=== PATIENT | male | born 1960 | race Caucasian/White ===

== ENCOUNTER 2024-05-20 10:51 | Emergency (ER) | payer MEDICARE, SELFPAY ==
[2024-05-20 11:22] VITALS: BP 108/67; PULSE 60; TEMP 36.7; O2SAT 97; BMI 28.7
--- NOTE | 2024-05-20 11:35 | XR_ITS ---
WS: [id number] XR lumbar spine 2-3V* [id number] REASON FOR EXAM: back pain FINDINGS: Relatively normal lumbar spine curvatures. No focal vertebral body lesion or compression deformity. Intervertebral disc spaces are intact with mild narrowing of the L4-L5 and L5-S1 disc space. Mild osteophytosis L1-L5. XR/XR lumbar spine 2-3V* [id number] IMPRESSION: Mild degenerative spondylosis. No acute abnormality.
--- NOTE | 2024-05-20 11:39 | ED_ITS ---
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 States pain is much worse with movement improved with rest denies any bowel or bladder incontinence rates pain 8 out of 10 currently. Associated symptoms: Deny abdominal pain, chills, fever(s), nausea or vomiting Review of Systems Const: Denies: fever(s), chills, body aches or change in appetite ENMT: Denies: throat pain or dental pain Card: Denies: chest pain Resp: Denies: dyspnea GI: Denies: abdominal pain, nausea, vomiting or diarrhea Musc: Reports: back pain; Denies: neck pain Skin/Breast: Denies: rash Neuro: Denies: headache(s) Physical Exam Const: COMMON NORMALS: no acute distress, patient oriented x3 and healthy appearing HENMT: COMMON NORMALS: normocephalic and atraumatic HEAD & SCALP: normocephalic and atraumatic Eye: COMMON NORMALS: conjunctivae normal CONJUNCTIVA: Yes conjunctivae normal Neck/C-Spine: COMMON NORMALS: full ROM and supple Chest: COMMONS NORMALS: normal inspection of the chest Resp: COMMON NORMALS: normal respiratory effort Cardio: COMMON NORMALS: regular rate, regular rhythm and No murmurs present (Cardio) RATE: regular rate RHYTHM: regular rhythm Back/Pelvis: OTHER: Paraspinal tenderness to lumbar spine no saddle anesthesia Extremity: COMMON NORMALS: normal to inspection and full ROM Neuro: COMMON NORMALS: patient oriented x3, moves all extremities and no focal motor deficits Psych: COMMON NORMALS: mental status grossly normal, Normal thought process present and cooperative THOUGHT PROCESS: Normal thought process present Skin: COMMON NORMALS: no rashes or lesions noted and no wounds GENERAL SKIN EXAM: no rashes or lesions noted Course Vital Signs: Vital signs: Vital Signs Temperature 98.0 F 05/20/24 11:22 Pulse Rate 60 05/20/24 11:22 Blood Pressure 108/67 05/20/24 11:22 Pulse Oximetry 97 05/20/24 11:22 Oxygen Delivery Me thod Room Air 05/20/24 11:22 MDM - Back Pain/Injury Medical Decision Making Patient presents here with low back pain is chronic in nature he is well- appearing here we will place him on Naprosyn Robaxin return if worsening. Medical Records I reviewed the patient's medical records. XR interpretation done by ED provider, pending radiology final review ED provider radiology interpretation(s): xr lumba: no acute abnormality Discharge Plan Discharge Patient Disposition: Home Clinical Impression: Chronic back pain Condition: Stable Prescriptions: New methocarbamol 750 mg tablet 750 mg PO Q6H PRN (Reason: spasms) Qty: 20 0RF Naprosyn 500 mg tablet 500 mg PO BID PRN (Reason: pain) Qty: 20 0RF Discharge Orders: Discharge ED (Routine); Ordered 05/20/24 Ordered By: Maritza Collins Discharge Diet: Advance as tolerated Discharge Activity: Resume usual activity Patient Instructions: Back Pain (ED) Coding Level of Care Code ED Oversize Load Pilot Escort for Jayla Ortiz
[2024-05-20] MEDS: methocarbamol 750 mg Tablet 1500 MG PO (11:41)
[2024-05-20] MEDS: dexamethasone 10 mg/mL INJ IM (11:42)
[2024-05-20] MEDS: ketorolac 30 mg/mL INJ IM (11:44)
--- NOTE | 2024-05-22 08:31 | DCPLANNER ---
Message sent to [facility] for PCP request.
== END 2024-05-20 12:51 | disposition home or self-care (01) ==
PROVIDERS: Emergency Provider Emergency Medicine
DX: M54.50 Low back pain, unspecified (principal); G89.29 Other chronic pain
CPT/HCPCS: 72100; 96372; 99284; J1100; J1885

== ENCOUNTER → 2025-01-13 13:34 | Outpatient (BNVA) | payer MEDICARE, SELFPAY | PROVIDERS: PCP Family Medicine; Visit Provider Family Medicine | DX: M10.9 Gout, unspecified (principal); M19.90 Unspecified osteoarthritis, unspecified site; M62.838 Other muscle spasm; G89.29 Other chronic pain; E03.9 Hypothyroidism, unspecified | CPT/HCPCS: 80053; 80061; 82306; 82607; 84443; 84550; 85025 ==

== ENCOUNTER → 2025-03-24 12:31 | Outpatient (BNVA) | payer MEDICARE, SELFPAY | PROVIDERS: PCP Family Medicine; Visit Provider Family Medicine | DX: R79.89 Other specified abnormal findings of blood chemistry (principal) | CPT/HCPCS: 82040; 84270; 84403 ==

== ENCOUNTER 2025-07-16 09:24 | Emergency (ER) | payer MEDICARE, SELFPAY ==
[2025-07-16 09:34] VITALS: BP 164/88; PULSE 57; TEMP 36.6; O2SAT 100
--- OUTSIDE RECORDS SUMMARY | 2025-07-16 09:37 | XMS_ITS | Patient Health Record ---
Author Organization [facility] Address [address] [place] [address] Care Team Providers Care Window Caser Name Role Phone Darin Dey MD Primary Care Provider Unav DR. Valerio Gill Unavailable [phone] Reason For Referral No Information Plan Of Treatment No Information Insurance Providers Payer Name Payer Address Payer Phone Subscriber Number Group Number Insured Name Patient Relationship to Insured Coverage Start Date Coverage End Date [facility] [address] [address] [place] [address] [id number] Brenton Lind Self - patient is the insured
--- OUTSIDE RECORDS SUMMARY | 2025-07-16 09:37 | XMS_ITS | Patient Health Record ---
Author Organization [facility] Address [address] [place] [address] Care Team Providers Care Foundation Assistant Name Role Phone Riley Gasca Unavailable [phone] Triny Aragon, Jaxon Unavailable Fcoi lable Allergies Allergen (clinical drug ingredient) Drug/Non Drug Allergy documented on EMR Reaction Allergy Type Onset Date Status NKDA Unknown Drug Allergy Active Reason For Referral No Information Medications Medication SIG (Take, Route, Fr equency, Duration) Notes Start Date End Date Status Vicodin 300 mg-5 mg 1 tab(s) orally every 6 hours Active Problems Problem Type SNOMED Code ICD Code Onset Dates Problem Status W/U Status Risk Notes Problem Shoulder joint pain (542414428) Pain in left shoulder (M25.512) Active confirmed Problem Arthralgia of the upper arm (054210269) Pain in left elbow (M25.522) Active confirmed Problem Paresthesia (finding) (13602276) Paresthesia of skin (R20.2) Active confirmed Plan Of Treatment No Information Insurance Providers Payer Name Payer Address Payer Phone Subscriber Number Group Number Insured Name Patient Relationship to Insured Coverage Start Date Coverage End Date [employer] [address] [place] [address] [id number] Brenton Lind Self - patient is the insured Medical (General) History Medical History History ICD Code Otherwise unremarkable Surgical History Surgery Date(Month/Year) 31 surgeries arm - left 3x 09/29
--- NOTE | 2025-07-16 09:38 | CT_ITS ---
WS: [id number] CT HEAD NONCONTRAST HISTORY: Symptoms of acute stroke TECHNIQUE: Contiguous axial imaging performed through the brain. Bone and soft tissue windows. Sagittal and coronal reformats reviewed. All CT scans at [facility] use at least one of these dose optimization techniques: automated exposure control; mA and/or kV adjustment per patient size (includes targeted exams where dose is matched to clinical indication); or iterative reconstruction. DLP: 1019.49 mGy COMPARISON: None available. No acute intracranial hemorrhage, midline shift or mass effect. No atrophy or prior infarcts or herniation. Ventricles: Normal size with no hydrocephalus. Paranasal sinuses: As visualized are clear. Mastoid air cells: Well pneumatized. Calvarium and scalp: Skull is intact with no soft tissue edema or swelling. CT/CT head thrombolytic [id number] IMPRESSION: Negative head CT. Notified Maritza Collins MD at 07/16/2025 9:49 AM.
--- NOTE | 2025-07-16 09:38 | ECG_ITS ---
[facility] Pat Name: Brenton Lind Department: Room: Gender: Male Critical Care Specialist: : 1960 Requested By: Maritza Collins Order Number: [id number] Gustavo MD: Shar Martin M.D. Measurements Intervals [place] Rate: 47 P: 49 [place]: 202 QRS: 3 QRSD: 94 T: 21 QT: 419 QTc: 373 Interpretive Statements SINUS BRADYCARDIA WITH SINUS ARRHYTHMIA No previous ECG available for comparison Electronically Signed On 07-17-2025 08:37:08 CDT by Shar Martin M.D. [email or web address]
--- NOTE | 2025-07-16 09:40 | W.ED.DIZZY ---
HPI - Dizziness General: Chief Complaint: Dizziness Stated Complaint: Dizzy light headed N pressure behind L eye Time Seen by Provider: 07/16/25 09:35 Source: patient Mode of arrival: ambulatory Limitations: no limitations History of Present Illness: HPI Narrative: 64-year-old male states has been having some lightheadedness along with vertigo since 12:30 AM. He states that again when he woke up he still had the vertigo that had overnight. States it is much worse with movement and states he feels better with rest he states that he is been able to walk fine has had some slight nausea he has a mild headache denies any history of stroke denies any slurred speech or focal weaknesses Related Data Home Medications ?Medication ?Instructions ?Recorded ?Confirmed baclofen 5 mg tablet 5 mg PO TID PRN Spasms 07/16/25 07/16/25 bupropion HCl 150 mg 24 hr tablet, 150 mg PO QAM 07/16/25 07/16/25 extended release prednisone 20 mg tablet 20 mg PO BID PRN gout inflammation 07/16/25 07/16/25 Previous Rx's ?Medication ?Instructions ?Recorded oxycodone-acetaminophen 5 mg-325 1 tab PO Q8H PRN chronic pain DJD 06/26/25 mg tablet 30 days #90 tabs rosuvastatin 20 mg tablet (Crestor) 20 mg PO DAILY lipids #90 tabs 07/01/25 allopurinol 100 mg tablet 100 mg PO DAILY #90 tabs 07/11/25 meclizine 50 mg tablet 50 mg PO BID PRN dizziness #14 tabs 07/16/25 Allergies Allergy/AdvReac Type Severity Reaction Status Date / Time No Known Allergies Allergy Verified 07/04/25 11:21 Review of Systems Neuro: Reports: dizziness [facility] ED PFSH: Social History Smoking and tobacco/nicotine status: never used tobacco/nicotine Physical Exam Const: COMMON NORMALS: no acute distress, patient oriented x3 and healthy appearing HENMT: COMMON NORMALS: normocephalic and atraumatic HEAD & SCALP: normocephalic and atraumatic Eye: COMMON NORMALS: Equal, round and reactive pupils present and EOMs intact bilaterally PUPIL: Yes Equal, round and reactive pupils present OTHER: Beating nystagmus when looking to the right Neck/C-Spine: COMMON NORMALS: full ROM and supple Chest: COMMONS NORMALS: normal inspection of the chest Resp: COMMON NORMALS: normal respiratory effort Cardio: COMMON NORMALS: regular rate, regular rhythm and No murmurs present (Cardio) RATE: regular rate RHYTHM: regular rhythm Extremity: COMMON NORMALS: normal to inspection and full ROM Neuro: COMMON NORMALS: patient oriented x3, moves all extremities and no focal motor deficits Psych: COMMON NORMALS: mental status grossly normal, Normal thought process present and cooperative THOUGHT PROCESS: Normal thought process present Skin: COMMON NORMALS: no rashes or lesions noted and no wounds GENERAL SKIN EXAM: no rashes or lesions noted Course Vital Signs: Vital signs: Vital Signs Temperature 97.8 F 07/16/25 09:34 Pulse Rate 55 L 07/16/25 11:16 Blood Pressure 146/93 07/16/25 11:16 Pulse Oximetry 98 07/16/25 11:16 Oxygen Delivery Me thod Room Air 07/16/25 10:30 MDM - Dizziness Medical Decision Making 64-year-old male presented here with vertigo that started at 12:30 AM. Differential included BPPV CVA TIA. CVA was considered felt is less likely based on his history and exam of his vertigo being much worse with movement and improved with rest he also had resolution of his symptoms after meclizine. Labs were reviewed with no acute abnormalities noted or no critical labs. CT head showed no signs of stroke. EKG here showed a sinus bradycardia heart rate [address] elevation QRS was 94 QTc is 383. Patient's symptoms are likely peripheral vertigo likely BPPV. Did give him discharge instructions on BPPV and informed her on exercises to perform at home will prescribe meclizine for home to take as needed for dizziness his NIH here was 0 he is to follow-up with his PCP and return if worsening symptoms he understands agrees to plan. Medical Records I reviewed the patient's medical records. Lab Data I reviewed the patient's lab results. 07/16/25 09:52 07/16/25 09:[address] 07/16/25 09:38 IMPRESSION: Negative head CT. Notified Maritza Collins MD at 07/16/2025 9:49 AM. Laboratory Results WBC 6.38 10^3/uL (3.29-11.43) 07/16/25 09:52 RBC 5.28 10^6/uL (3.85-5.65) 07/16/25 09:52 Hgb 15.30 g/dL (11.27-16.99) 07/16/25 09:52 Hct 44.7 % (37-53) 07/16/25 09:52 MCV 84.7 fl (82-101) 07/16/25 09:52 MCH 29.0 pg (27-33) 07/16/25 09:52 MCHC 34.2 g/dL (30-55) 07/16/25 09:52 RDW 12.1 % (12.1-15.1) 07/16/25 09:52 Plt Count 195 10^3/cmm (157-399) 07/16/25 09:52 MPV 8.4 fL (7.4-10.4) 07/16/25 09:52 Neut % (Auto) 69.8 % 07/16/25 09:52 Lymph % (Auto) 16.5 % 07/16/25 09:52 Victoria % (Auto) 9.2 % 07/16/25 09:52 Eos % (Auto) 3.3 % 07/16/25 09:52 Baso % (Auto) 0.9 % 07/16/25 09:52 Neut # (Auto) 4.45 10^3/uL (1.8-7.7) 07/16/25 09:52 Lymph # (Auto) 1.1 10^3/uL (0.8-4.8) 07/16/25 09:52 Victoria # (Auto) 0.6 10^3/uL (0.2-0.9) 07/16/25 09:52 Eos # (Auto) 0.2 10^3/uL (0.0-0.8) 07/16/25 09:52 Baso # (Auto) 0.1 10^3/uL (0.0-0.1) 07/16/25 09:52 Nucleated RBC % (auto) 0 % 07/16/25 09:52 Nucleated RBCs # 0.0 /100WBC 07/16/25 09:52 PT 12.40 SECONDS (12.1-14.9) 07/16/25 09:52 INR 0.87 (0.8-1.2) 07/16/25 09:52 APTT 26.8 SECONDS (23.9-36.7) 07/16/25 09:52 Sodium 139 mmol/L (136-145) 07/16/25 09:52 Potassium 4.2 mmol/L (3.5-5.1) 07/16/25 09:52 Chloride 102 mmol/L (98-107) 07/16/25 09:52 Carbon Dioxide 26 mmol/L (22-29) 07/16/25 09:52 Anion Gap 15.2 (5-19) 07/16/25 09:52 BUN 13 mg/dL (8-23) 07/16/25 09:52 Creatinine 0.8 mg/dL (0.7-1.2) 07/16/25 09:52 GFR Calculation 97.0 mL/min (90-130) 07/16/25 09:52 Glucose 95 mg/dL (65-115) 07/16/25 09:52 Calculated Osmolality 288 mOsm/kg (285-295) 07/16/25 09:52 Calcium 9.5 mg/dL (8.5-10.5) 07/16/25 09:52 Total Bilirubin 0.7 mg/dL (0.15-1.2) 07/16/25 09:52 AST 15 U/L (0-40) 07/16/25 09:52 ALT 24 U/L (0-41) 07/16/25 09:52 Alkaline Phosphatase 71 U/L (40-130) 07/16/25 09:52 Total Protein 7.3 g/dL (6.6-8.7) 07/16/25 09:52 Albumin 4.5 g/dL (3.5-5.2) 07/16/25 09:52 Globulin 2.8 g/dL (1.3-4.6) 07/16/25 09:52 Urine Color Yellow (Yellow) 07/16/25 10:02 Urine Appearance Clear (CLEAR) 07/16/25 10:02 Urine pH 5.5 (5-7) 07/16/25 10:02 Ur Specific [place] 1.004 (1.005-1.030) L 07/16/25 10:02 Urine Protein Negative (Negative) 07/16/25 10:02 Urine Glucose (UA) Negative (Normal) 07/16/25 10:02 Urine Ketones Negative (Negative) 07/16/25 10:02 Urine Blood Negative (Negative) 07/16/25 10:02 Urine Nitrate Negative (Negative) 07/16/25 10:02 Urine Bilirubin Negative (Negative) 07/16/25 10:02 Urine Urobilinogen 0.2 mg/dL (Negative) 07/16/25 10:02 Ur Leukocyte Esterase Negative (Negative) 07/16/25 10:02 Amorphous Sediment Not Reportable 07/16/25 10:02 Urine Opiates Screen Negative ng/mL (Negative) 07/16/25 10:02 Ur Barbiturates Screen Negative ng/mL (Negative) 07/16/25 10:02 Ur Phencyclidine Scrn Negative ng/mL (Negative) 07/16/25 10:02 Ur Amphetamines Screen Negative ng/mL (Negative) 07/16/25 10:02 U Benzodiazepines Scrn Negative ng/mL (Negative) 07/16/25 10:02 Urine Cocaine Screen Negative ng/mL (Negative) 07/16/25 10:02 U Marijuana (THC) Screen Negative ng/mL (Negative) 07/16/25 10:02 All radiology interpretation(s) finalized by discharge EKG Data EKG 1: I personally reviewed and interpreted this EKG as follows: EKG interpretation date: 07/16/25 EKG interpretation time: 10:06 Interpretation: sinus rhiannon hr [address] elevation qrs 94 qtc 383 Discharge Plan Discharge Patient Disposition: Home Clinical Impression: Vertigo Condition: Stable Prescriptions: New meclizine 50 mg tablet 50 mg PO BID PRN (Reason: dizziness) Qty: 14 0RF No Action oxycodone-acetaminophen 5-325 mg tablet 1 tab PO Q8H PRN (Reason: chronic pain DJD) 30 Days Qty: 90 0RF rosuvastatin [Crestor] 20 mg tablet 20 mg PO DAILY Qty: 90 3RF allopurinol 100 mg tablet 100 mg PO DAILY Qty: 90 3RF bupropion HCl 150 mg tablet extended release 24 hr 150 mg PO QAM prednisone 20 mg tablet 20 mg PO BID PRN (Reason: gout inflammation) baclofen 5 mg tablet 5 mg PO TID PRN (Reason: Spasms) Discharge Orders: Discharge ED (Routine); Ordered 07/16/25 Ordered By: Maritza Collins Referrals: [facility], [Primary Care Provider, [facility]] - 4-7 days Discharge Diet: Advance as tolerated Discharge Activity: Resume usual activity Patient Instructions: Benign Paroxysmal Positional Vertigo (ED), Dizziness (ED) Print Language: German Coding Level of Care Code ED Corrective Therapist for Chg Fwd NIH stroke score NIHSS Level Of Consciousness - 1a: 0 Level Of Consciousness Questions - 1b: Both Correct Level Of Consciousness Commands - 1c: Both Correct Best Gaze - 2: Normal Visual Petit - 3: No Visual Loss Facial Palsy - 4: Normal Motor Arm Right - 5: No Drift Motor Arm Left - 5: No Drift Motor Leg Right - 6: No Drift Motor Leg Left - 6: No Drift Limb Ataxia - 7: Absent Sensory - 8: Normal Best Language - 9: No Aphasia Dysarthia - 10: Normal Extinction And Inattention - 11: 0 Score Total Score: 0
[2025-07-16 09:58] LABS: Hematocrit 44.7 % (37-53); Hemoglobin 15.30 g/dL (11.27-16.99); Mean Corpuscular HGB Conc 34.2 g/dL (30-55); Mean Corpuscular Hemoglobin 29.0 pg (27-33); Mean Corpuscular Volume 84.7 fl (82-101); Nucleated Red Blood Cells % 0 %; Platelet Count 195 10^3/cmm (157-399); Red Blood Count 5.28 10^6/uL (3.85-5.65); White Blood Count 6.38 10^3/uL (3.29-11.43)
[2025-07-16 10:14] LABS: Alanine Aminotransferase 24 U/L (0-41); Albumin Level 4.5 g/dL (3.5-5.2); Alkaline Phosphatase 71 U/L (40-130); Anion Gap 15.2 (5-19); Aspartate Amino Transferase 15 U/L (0-40); Blood Urea Nitrogen 13 mg/dL (8-23); Calcium 9.5 mg/dL (8.5-10.5); Carbon Dioxide 26 mmol/L (22-29); Chloride 102 mmol/L (98-107); Creatinine Clr Calc Pharmacy 105.4615; Globulin 2.8 g/dL (1.3-4.6); Glucose 95 mg/dL (65-115); Osmolality Calculated 288 mOsm/kg (285-295); Potassium 4.2 mmol/L (3.5-5.1); Sodium 139 mmol/L (136-145); Total Protein 7.3 g/dL (6.6-8.7)
[2025-07-16 10:16] VITALS: BP 141/93; PULSE 65; O2SAT 96
[2025-07-16 10:30] VITALS: BP 144/84; PULSE 51; O2SAT 98
[2025-07-16 10:34] LABS: Glucose Urine UA Negative (Normal); Nitrate Urine Negative (Negative); Specific Gravity, Urine 1.004 (1.005-1.030)
[2025-07-16 10:40] LABS: PCP Screen Urine Negative (Negative)
[2025-07-16 10:40] LABS: INR 0.87 (0.8-1.2); Partial Thromboplastin Time 26.8 SECONDS (23.9-36.7); Prothrombin Time 12.40 SECONDS (12.1-14.9)
[2025-07-16 10:45] LABS: Add Urine Microscopic? NO; Charge for UA Resulting for Rev
[2025-07-16 11:16] VITALS: BP 146/93; PULSE 55; O2SAT 98
== END 2025-07-16 11:16 | disposition home or self-care (01) ==
PROVIDERS: Emergency Provider Emergency Medicine; PCP Family Medicine
DX: R42 Dizziness and giddiness (principal)
CPT/HCPCS: 36415; 36416; 70450; 80053; 80306; 81003; 82962; 85025; 85610; 85730; 93005; 96374; 99285; J1885; J8597